=== PATIENT | female | born 1975 | race Caucasian/White ===

== ENCOUNTER 2020-04-08 08:08 | Day surgery (SDC) | payer OTHER ==
[~2020-04-08] VITALS: Ht 177.8 cm; Wt 107.1 kg
[2020-04-08 08:29] VITALS: BP 121/75; PULSE 74; TEMP 98.5
[2020-04-08] MEDS ORDERED: NORVASC 10MG10 MG PO (08:32)
[2020-04-08] MEDS ORDERED: COZAAR100 MG PO (08:32)
[2020-04-08] MEDS ORDERED: HCTZ12.5TAB PO (08:32)
[2020-04-08] MEDS ORDERED: SYNTHROID0.05 MG/TA PO (08:33)
[2020-04-08 10:43] VITALS: BP 137/90; PULSE 59; TEMP 97
--- NOTE | 2020-04-08 10:43 | NUR ---
The patient arrived back to [facility] from the operating room at this time. The patient appears alert and oriented and denies any pain or nausea at this time. Post operative vital signs were started at this time. The patient has a dressing in place to her right foot with a post op shoe also in place. The patient states that her foot is numb but she can "kind of feel her toes". The patient agrees to try some toast, pudding and ice water. The patient's is at her bedside. Will continue to monitor the patient.
[2020-04-08 10:58] VITALS: BP 125/78; PULSE 62
--- NOTE | 2020-04-08 10:58 | NUR ---
The patient appears to be tolerating the food and drink well. Vital signs appear stable. Will continue to monitor the patient.
[2020-04-08 11:13] VITALS: BP 124/84; PULSE 67
--- NOTE | 2020-04-08 11:15 | NUR ---
The patient ambulated to the bathroom with the stand by assistance of one nurse and appeared to tolerate the activity well. The patient voided without difficulty and ambulated back to her room. The nurse instructed the patient to get dressed and press her call light when she is ready to review her discharge paperwork.
--- NOTE | 2020-04-08 11:25 | NUR ---
Discharge instructions were reviewed with the patient and her at this time. They both verbalized understanding and have no questions for the nurse at this time. The patient's IV to her left forearm was removed and a pressure dressing was applied to the site.
--- NOTE | 2020-04-08 11:35 | NUR ---
The patient was escorted out via wheelchair to a private vehicle by KELSY Hernandez. The patient's belongings and discharge paperwork were sent with her. The patient's is presen to drive her home.
== END 2020-04-08 11:35 | disposition home or self-care (01) ==
LOC: SDCO 08:08
DX: M20.41 Other hammer toe(s) (acquired), right foot (principal); M77.51 Other enthesopathy of right foot and ankle; I10 Essential (primary) hypertension; E03.9 Hypothyroidism, unspecified; F32.9 Major depressive disorder, single episode, unspecified; F41.9 Anxiety disorder, unspecified; E88.81 Metabolic syndrome and other insulin resistance; E66.9 Obesity, unspecified; Z79.890 Hormone replacement therapy; Z79.899 Other long term (current) drug therapy
CPT/HCPCS: J0690; J2250; J2405; J2704; J3010; J7120

== ENCOUNTER 2023-04-06 18:58 | Emergency (ER) | payer BC ==
[~2023-04-06] VITALS: Ht 177.8 cm; Wt 106.8 kg
[~2023-04-06 18:58] MED LIST: COZAAR100 MG PO; HCTZ12.5TAB PO; NORVASC 10MG10 MG PO; SYNTHROID0.05 MG/TA PO
[2023-04-06 19:31] LABS: HEMATOCRIT 38.2 % (37.0-47.0); HEMOGLOBIN 13.6 g/dl (12.5-16.0); MEAN CELL VOLUME 91 fl (80.0-100.0); MEAN CORPUSCULAR HEMOGLOBIN 32 pg (27-31); MEAN CORPUSCULAR HGB CONC 36 g/dl (33.0-37.0); MEAN PLATELET VOLUME 10.1 fl (7.4-10.4); PLATELET COUNT 221 K/mm3 (130-400); REDCELL DISTRIBUTION WIDTH-CV 12.9 % (11.5-14.5)
[2023-04-06 19:43] LABS: ALANINE AMINOTRANSFERASE 39 U/L (0-55); ALBUMIN 4.1 gm/dL (3.5-5.0); ALKALINE PHOSPHATASE 69 U/L (40-150); ANION GAP 16 mmol/L (7-16); AST,SGOT 23 U/L (5-34); BILIRUBIN,TOTAL 0.4 mg/dL (0.2-1.2); BLOOD UREA NITROGEN 11 mg/dL (10-20); CALCIUM 9.3 mg/dL (8.4-10.2); CARBON DIOXIDE 23 mmol/L (22-29); CHLORIDE 99 mmol/L (98-107); CREATININE, serum 0.81 mg/dL (0.57-1.11); GLUCOSE 161 mg/dL (70-99); POTASSIUM 3.1 mmol/L (3.5-4.5); SODIUM 138 mmol/L (136-145)
[2023-04-06 19:55] LABS: TROPONIN-I < 0.010 ng/mL (0.00-0.033)
[2023-04-06 20:28] LABS: BAND 2 % (0-10); LYMPHOCYTE 3 % (20.0-51.0); NEUTROPHILS 94 % (42.0-75.2); PLATELET ESTIMATE NORMAL (NORMAL)
[2023-04-06 21:00] VITALS: BP 144/85; PULSE 99
== END 2023-04-06 21:00 | disposition home or self-care (01) ==
LOC: COL.ER 18:58
PROVIDERS: Physician Assistant
DX: M96.89 Other intraoperative and postprocedural complications and disorders of the musculoskeletal system (principal); R09.02 Hypoxemia; F17.210 Nicotine dependence, cigarettes, uncomplicated; Z98.890 Other specified postprocedural states
CPT/HCPCS: Q9967